=== PATIENT | male | born 1955 | race Caucasian/White ===

== ENCOUNTER 2018-08-15 10:55 | Day surgery (SDC) | payer OTHER ==
[2018-08-15 12:00] LABS: ADD MAN DIFF? NO
[2018-08-15 12:03] LABS: BASOPHILS % 0.6 % (0.0-2.0); EOSINOPHILS # 0.1 10^3/ul (0.0-0.5); EOSINOPHILS % 1.1 % (0.0-7.0); HEMOGLOBIN 13.3 g/dl (14.0-18.0); LYMPHOCYTES # 2.1 10^3/ul (0.8-2.9); LYMPHOCYTES % 32.7 % (15.0-51.0); MEAN CORPUSCULAR HEMOGLOBIN 29.2 pg (29.0-33.0); MEAN CORPUSCULAR HGB CONC 34.1 g/dl (32.0-37.0); MEAN CORPUSCULAR VOLUME 85.7 fl (82.0-101.0); MEAN PLATELET VOLUME 10.3 fl (7.4-10.4); MONOCYTE # 0.8 10^3/ul (0.3-0.9); NEUTROPHIL # 3.3 10^3/ul (1.6-7.5); NEUTROPHILS % 53.3 % (39.0-77.0); PLATELET COUNT 286 10^3/UL (140-415); RED BLOOD COUNT 4.55 10^6/ul (4.70-6.10); RED CELL DISTRIBUTION WIDTH 11.8 % (11.5-14.5)
[2018-08-15 12:03] LABS: WHITE BLOOD COUNT 6.3 10^3/ul (4.8-10.8)
[2018-08-15 12:22] LABS: INR 0.98; PROTIME 13.1 Sec (11.9-14.9)
[2018-08-15 12:23] LABS: PARTIAL THROMBOPLASTIN TIME 27.5 Sec (23.0-35.0)
[2018-08-15] MEDS ORDERED: DICLOFENAC 0.1% 2.5 ML OPH (PRE-OP) OPER (12:30)
[2018-08-15] MEDS: TETRACAINE 0.5% 4 ML OPH (PRE-OP) OPER (12:31)
[2018-08-15] MEDS: PHENYLephrine 2.5% 15 ML OPH (PRE-OP) OPER (12:32)
[2018-08-15] MEDS: CYCLOPENTOLATE 1% 2 ML OPH OPER (12:32)
[2018-08-15] MEDS: CIPROFLOXACIN 0.3% 2.5 ML OPH (PRE-OP) OPER (12:33)
[2018-08-15] MEDS: TROPICAMIDE 1% 15 ML OPH (PRE OP) OPER (12:40)
[2018-08-15] MEDS: LIDOCAINE 4% (MPF) 5 ML INJ INJ (13:15)
[2018-08-15] MEDS ORDERED: LIDOCAINE 4% (MPF) 5 ML INJ (13:16)
[2018-08-15] MEDS ORDERED: CARBACHOL 0.01% 1.5 ML OPH INJ (13:16)
[2018-08-15] MEDS ORDERED: EPINEPHrine 1 MG INJ (13:16)
[2018-08-15] MEDS ORDERED: MIDAZOLAM 1 MG/ML 2 ML INJ ×2 (13:19→14:18)
[2018-08-15] MEDS ORDERED: TRYPAN BLUE 0.5 ML SYG IO (14:00)
[2018-08-15] MEDS: CARBACHOL 0.01% 1.5 ML OPH INJ IO (14:30)
[2018-08-15] MEDS ORDERED: DEXAMETHASONE 4 MG/ML 1 ML INJ (14:33)
[2018-08-15] MEDS: DEXAMETHASONE 4 MG/ML 1 ML INJ INJ (14:35)
[2018-08-15] MEDS: ACETAMINOPHEN 325 MG TAB (POST-OP) PO (15:42)
== END 2018-08-15 16:15 | disposition home or self-care (01) ==
LOC: SDS 10:55
DX: H26.8 Other specified cataract (principal); H40.89 Other specified glaucoma
CPT/HCPCS: 66982; 85025; 85610; 85730